=== PATIENT | male | born 1970 | race American Indian/Alaskan Native ===

== ENCOUNTER 2020-06-19 18:51 | Emergency (ER) | payer SELFPAY ==
[2020-06-19] MEDS ORDERED: traMADol 50 MG TAB PO ONE (19:30)
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
[2020-06-19 19:36] VITALS: BP 128/81
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
== END 2020-06-19 20:50 | disposition home or self-care (01) ==
LOC: ED 18:51
DX: M25.571 Pain in right ankle and joints of right foot (principal); M79.604 Pain in right leg; Z79.899 Other long term (current) drug therapy

== ENCOUNTER 2021-10-02 02:51 | Emergency (ER) | payer SELFPAY ==
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
[2021-10-02] MEDS: IBUPROFEN 600 MG TAB PO ONE (05:32)
[2021-10-02] MEDS: HYDROcodone/ACETAMINOPHEN 5-325 MG TAB PO ONE (05:32)
[2021-10-02] MEDS: ONDANSETRON 4 MG ODT TAB PO ONE (05:33)
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
[2021-10-02 05:47] VITALS: BP 141/82
== END 2021-10-02 05:50 | disposition home or self-care (01) ==
LOC: ED 02:51
DX: S93.491A Sprain of other ligament of right ankle, initial encounter (principal); S96.911A Strain of unspecified muscle and tendon at ankle and foot level, right foot, initial encounter; X58.XXXA Exposure to other specified factors, initial encounter; Y93.89 Activity, other specified; Y92.89 Other specified places as the place of occurrence of the external cause; Y99.8 Other external cause status
CPT/HCPCS: 99283; J3490; Q0162